=== PATIENT | female | born 1970 | race African-American/Black ===

== ENCOUNTER → 2020-01-29 | Outpatient (CLI) | payer OTHER ==
[~2020-01-29] MED LIST: CALCIUM 500 +1 EACH PO; DIOVAN320 MG PO; VITAMIN D PO
== END ==
LOC: NUC 07:31
PROVIDERS: ATTEND Nurse Practitioner
DX: M81.0 Age-related osteoporosis without current pathological fracture (principal); E55.9 Vitamin D deficiency, unspecified; K90.9 Intestinal malabsorption, unspecified; E21.3 Hyperparathyroidism, unspecified

== ENCOUNTER → 2020-01-31 | Outpatient (CLI) | payer OTHER ==
[2020-01-31 10:05] VITALS: BP 133/72
[2020-01-31 11:35] VITALS: BP 160/85
== END ==
LOC: OPONC 09:10
DX: D50.8 Other iron deficiency anemias (principal); K90.9 Intestinal malabsorption, unspecified; R10.9 Unspecified abdominal pain
CPT/HCPCS: 95000

== ENCOUNTER → 2020-02-07 | Outpatient (CLI) | payer OTHER ==
[2020-02-07 13:54] VITALS: BP 163/76
[2020-02-07 14:50] VITALS: BP 154/76
--- NOTE | 2020-02-07 14:56 | NUR ---
IN FOR 2ND INJECTAFER INFUSION. STATED HAD NO SIDE EFFECTS FROM HER 1ST INFUSION LAST MONDAY. TOLERATED INJECTAFER WITHOUT INCIDENT. OBSERVED FOR 30 MINUTES. POST BP GOOD. REMOVED IV AND DISMISSED IN GOOD CONDITION.
== END ==
LOC: OPONC 13:24 → CAT 14:15
DX: D50.8 Other iron deficiency anemias (principal); K90.9 Intestinal malabsorption, unspecified
CPT/HCPCS: 95000

== ENCOUNTER 2020-03-27 07:02 | Inpatient (IN) | payer OTHER ==
[2020-03-27] VITALS (17 sets, daily range): BP systolic 110–182; BP diastolic 72–88
[~2020-03-27] VITALS: Ht 170.2 cm; Wt 130.6 kg
--- NOTE | ~2020-03-27 | O ---
[facility] [place] [address] OPERATIVE REPORT Name: ROYCE KERR Room #: 441-P [facility] IN M.R.#: [id number] Admission: 03/27/20 Attend Phys: Victorina Paul DO Discharge: Date of : 74 Report #: [id number] THIS REPORT FOR: cc: Zeferino Valdes James A. DO Farris, Kari C. DO ~ CC: Zeferino Hilliard DATE OF SERVICE: 03/27/2020 PREOPERATIVE DIAGNOSES: 1. Uterine fibroids. 2. Enlarged uterus. 3. Pelvic pain. POSTOPERATIVE DIAGNOSES: 1. Uterine fibroids. 2. Enlarged uterus. 3. Pelvic pain. OPERATIVE PROCEDURE: Total abdominal hysterectomy with bilateral salpingo-oophorectomy. SURGEON: Dr. Victorina Paul. ANESTHESIA: General. INTRAVENOUS FLUIDS: 800 mL. URINE OUTPUT: 200 mL. ESTIMATED BLOOD LOSS: 250 mL. COMPLICATIONS: None. PATHOLOGY: Uterus with cervix, bilateral fallopian tubes and ovaries. DESCRIPTION OF PROCEDURE: The patient was taken to the operating room where general anesthesia was administered and found to be adequate. She was then prepped and draped in normal sterile fashion in dorsal supine position. A Pfannenstiel skin incision was made in the patient's abdomen approximately 2 cm above the symphysis pubis and carried through to the underlying layer of fascia. The fascia was nicked in the midline. The incision was extended laterally with Mason scissors. The superior aspect of the fascial incision was grasped with [facility] [address] [place] [address] OPERATIVE REPORT Name: USHAROYCE Room #: 441-P [facility] IN M.R.#: [id number] Admission: 03/27/20 Attend Phys: Victorina Paul DO Discharge: Date of : 74 Report #: [id number] Pina clamps, elevated and the underlying rectus muscle dissected off bluntly as well as with Mason scissors. Attention was turned to the inferior aspect of this incision, which in similar fashion was grasped with Pina clamps, elevated and the underlying rectus muscle dissected off bluntly and with Mason scissors. The rectus muscles were in the midline. The peritoneum was identified and entered bluntly. The peritoneal incision was then extended superiorly and inferiorly. The [place] retractor was then placed in the patient's abdomen. The patient was then placed in slight Trendelenburg position. The bowel was packed away cephalad with moist laparotomy sponges. The uterus was identified and then grasped with a Katrin tenaculum and brought through the hysterotomy incision. The bladder blade of the Ronnell was then placed in the patient's abdomen. The right fallopian tube and ovary were then grasped with a Kevin clamp and using the LigaSure device, the infundibulopelvic ligament was transected as well as the uteroovarian ligament and the fallopian tube. These structures were excised and sent for pathology. Attention was then turned to the patient's left pelvis where the fallopian tube and ovary were grasped on this side with a Kevin clamp and the same procedure was performed. Once the ovary and fallopian tube were excised, it was passed off for pathology. Attention was then turned back to the patient's uterus. The round ligaments were then transected using the LigaSure device bilaterally followed by the broad ligaments. The vesicouterine peritoneum was identified, tented upward and undermined with Metzenbaum scissors. The bladder flap was then created and dissected off the anterior aspect of the uterus and cervix bluntly with a moist Ray-Michael sponge. The cardinal ligaments and uterine arteries were then clamped and cauterized using the LigaSure device. Further blunt dissection of the bladder was performed. Once the cervix was well visualized, it was entered sharply using a scalpel. The anterior aspect of the vaginal mucosa was then grasped with a Pina clamp and using a curved Mason, the cervix was amputated from the apex of the vagina. The vaginal cuff was grasped at posterior aspect as well as both corners. The cervix and uterus were passed off for pathology. A 0 Vicryl was then used to reapproximate the anterior and posterior vaginal mucosa as well as anterior and posterior pelvic peritoneum in a running locked fashion. There was a small amount of bleeding noted at bilateral corners; therefore [id number] stitches were placed. The anterior aspect of the vaginal cuff was also noted to have a small amount of bleeding. Therefore, this was oversewn with 2-0 Vicryl. The pelvis was copiously irrigated. The irrigant was removed with suction and the vaginal cuff as well as bilateral pedicles were noted to be hemostatic. Shelbie was placed over the vaginal cuff. The [place] retractor was removed from the patient's abdomen and the laparotomy sponges were removed. The bowel was placed in its normal anatomical position. The muscle and peritoneum were then reapproximated using 2-0 Vicryl. The fascia was closed with 0 PDS in a running fashion. The subcutaneous tissue was irrigated. Bovie cautery was used to obtain excellent hemostasis. The subcutaneous tissue was then reapproximated using 3-0 plain and the skin was closed with subcuticular stitch using 4-0 Vicryl. The patient tolerated the procedure well. eduard Horne [facility] [address] [place] [address] OPERATIVE REPORT Name: KERRROYCE Room #: 441-P [facility] IN M.R.#: [id number] Admission: 03/27/20 Attend Phys: Victorina Paul DO Discharge: Date of : 74 Report #: [id number] and needle counts were reported as correct and the patient was taken to the recovery room in stable condition. By: [id number] Victorina Paul DO /nt
[~2020-03-27 07:02] MED LIST changes: +CYCLOBENZAPRINE10 MG PO; +FOSAMAX 70 MG T70 MG PO; +HEARTBURN RELIE20 MG PO
--- NOTE | 2020-03-27 09:07 | EKG ---
[facility] [place] [address] ELECTROCARDIOGRAM REPORT Name: ROYCE KERR Room #: [facility] [place]..#: [id number] Admission: 03/27/20 Attend Phys: Victorina Paul DO Discharge: Date of : 74 Report #: [id number] THIS REPORT FOR: cc: Zeferino Valdes James A. DO Lundgren, Craig H. MD [facility] ~ THIS REPORT FOR: //name// [facility] Test Date: 2020-03-27 Test Time: 07:27:01 Pat Name: ROYCE KERR Department: Room: Gender: F Erp Technical Lead: BREANNA : 1970 Requested By: Victorina Paul Order Number: [id number] MD: Tenzin Oneil Measurements Intervals [place] Rate: 74 P: 47 [place]: 160 QRS: 19 QRSD: 87 T: 20 QT: 395 QTc: 439 Interpretive Statements Sinus rhythm Abnormal R-wave progression, early transition No previous ECG available for comparison Electronically Signed On 03-27-2020 9:07:33 CDT by Tenzin Oneil [email or web address] <ELECTRONICALLY SIGNED> By: Tenzin Oneil MD, [facility] 03/27/20906 6 6 Tenzin Oneil MD, [facility] /EPI
[2020-03-27 09:21] LABS: HEMATOCRIT 38.8 % (37.0-47.0); HEMOGLOBIN 12.5 gm/dL (12.0-15.0)
--- NOTE | 2020-03-27 13:26 | NUR ---
PATIENT ARRIVED TO UNIT FROM PACU AT APPROX. 1230. ASSESSMENT CHARTED WITH ASSIST FROM SHERRELL HOLLY. PATIENT STATES PAIN AT 3/10 AND IS RESTING COMFORTABLY. PATIENT A&OX4 ABLE TO VOICE NEEDS. VSS, WILL CONTINUE TO MONITOR
--- NOTE | 2020-03-27 15:32 | NUR ---
Nutrition: pt admitted S/P Total hysterectomy, BSO this day. Received consult stating "post surgical". Diet advanced to clear liquids. Pt was sleeping soundly, did not disturb. No recent weight changes per chart. BMI 45, extreme class 3 obesity. No nutrition intervention planned at present. Will follow for timely diet advancement or any nutrition education desires. Low risk.
--- NOTE | 2020-03-28 03:43 | NUR ---
RECIEVED CARE OF THIS PATIENT AT 1900. PATIENT ALERT AND ORIENTED X4. HAS DRESSING ON LOWER ABD AT BIKINI LINE. DRESSING D/I. PATIENT DENIES PAIN. PATIENT HAS CAO WITH CLEAR LIGHT YELLOW URINE. IV IN LH PATENT WITH FLUIDS INFUSING. PATIENT HAS HEATING PAD TO ABD. SCD'S ON RAMONA. PATIENT ON BEDREST PER DOCTORS ORDERS. EDUCATED ON THE IMPORTANCE OF COUGHING AND DEEP BREATHING AND MOVING LEGS. SLEPT OFF AND ON DURING NIGHT.
[2020-03-28 04:45] VITALS: BP 132/67
[2020-03-28 05:58] LABS: HEMATOCRIT 35.4 % (37.0-47.0); HEMOGLOBIN 11.5 gm/dL (12.0-15.0); MCHC 32.3 g/dL (28.0-37.0); MCV 86.7 fL (80.0-100.0); RBC 4.09 mil/uL (4.20-5.00); RDW 22.9 % (10.5-14.5); WBC 11.8 thou/uL (4.0-11.0)
[2020-03-28 06:18] LABS: CALCIUM 8.2 mg/dL (8.5-10.1); CREATININE 0.7 mg/dL (0.6-1.0); POTASSIUM 3.9 mmol/L (3.5-5.1); TOTAL BILIRUBIN 0.4 mg/dL (0.2-1.0); TOTAL PROTEIN 6.3 g/dL (6.4-8.2)
[2020-03-28 08:43] VITALS: BP 136/86
--- NOTE | 2020-03-28 12:35 | NUR ---
Assumed pt care at 7am.Pt in bed resting without c/o.Assessment completed.vss. Regular diet ordered for breakfast.Pt up to bathroom with sba and walked back to chair byself for breakfast.Fair appetite noted.Pt ambulated in hallways with aerospace engineer assist.Good endurance noted.Pt will be going for another walk after lunch.No verbal c/o at present .Will continue to monitor.
[2020-03-28 16:12] VITALS: BP 145/98
[2020-03-28 20:00] VITALS: BP 127/78
[2020-03-29 03:29] VITALS: BP 116/71
--- NOTE | 2020-03-29 04:09 | NUR ---
RECIEVED CARE OF THIS PATIENT AT 1900. PATIENT ALET AND ORIENTED X4. UP TO BATHROOM WITH SBA. INCISION ON ABD AT BIKINI LINE IS WELL APPROXIMATED WITH OUT AND S/S OF INFECTION. NO DRAINAGE, REDNESS, TENDERNESS OR HEAT. PATIENT ONLY HAS PAIN WHEN GETTING UP. NO FLATUS YET BUT BELCHING A LOT. C/O H/A. BLOOD PRESSURE WAS RESTARTED TONIGHT. SLEPT MOST OF THS NIGHT.
[2020-03-29 08:42] VITALS: BP 139/87
[2020-03-29 12:03] VITALS: BP 139/87
== END 2020-03-29 14:14 | disposition home or self-care (01) | DRG 743 ==
LOC: OR → 4S 12:31 → OR 12:42 → 4S 03-29 14:14
PROVIDERS: Anesthesiology; ADMIT Obstetrics & Gynecology; ATTEND Obstetrics & Gynecology
PROC: 0UT70ZZ Resection of Bilateral Fallopian Tubes, Open Approach (ICD-10-PCS; principal; 2020-03-27)
PROC: 0UT90ZZ Resection of Uterus, Open Approach (ICD-10-PCS; principal; 2020-03-27)
PROC: 0UT20ZZ Resection of Bilateral Ovaries, Open Approach (ICD-10-PCS; principal; 2020-03-27)
DX: D25.9 Leiomyoma of uterus, unspecified (principal); N85.2 Hypertrophy of uterus; I10 Essential (primary) hypertension; K21.9 Gastro-esophageal reflux disease without esophagitis
CPT/HCPCS: 10102; 50010; 50093; 50101; 50386; 50455; 52287; 54118; 56524; 56525; 56526; 57092; 62110; 62900; 70005

== ENCOUNTER → 2020-04-13 | Outpatient (CLI) | payer OTHER ==
[2020-04-13 12:59] LABS: ABSOLUTE NEUTROPHILS 3.7 thou/uL (1.4-8.2); BASOPHILS 0.8 % (0.0-2.0); EOSINOPHILS 1.6 % (0.0-3.0); HEMATOCRIT 37.7 % (37.0-47.0); HEMOGLOBIN 12.7 gm/dL (12.0-15.0); LYMPHOCYTES 28.2 % (24.0-44.0); MCH 29.6 pg (26.0-34.0); MCHC 33.8 g/dL (28.0-37.0); MCV 87.5 fL (80.0-100.0); MONOCYTES 8.7 % (1.0-8.0); PLATELET COUNT 288 thou/uL (150-400); POLYS 60.7 % (36.0-66.0); RBC 4.31 mil/uL (4.20-5.00); RDW 19.6 % (10.5-14.5)
[2020-04-13 13:36] LABS: % SATURATION 15 % (20-39); IRON 59 ug/dL (50-170); TIBC 391 ug/dL (250-450)
[2020-04-13 14:09] LABS: ANISOCYTOSIS 2+; PLATELET ESTIMATE NORMAL
== END ==
LOC: LABMALL 12:03
PROVIDERS: ATTEND Nurse Practitioner
DX: E61.1 Iron deficiency (principal); E53.8 Deficiency of other specified B group vitamins; E55.9 Vitamin D deficiency, unspecified

== ENCOUNTER → 2020-05-27 | Outpatient (CLI) | payer OTHER ==
[2020-05-27 15:10] LABS: ABSOLUTE NEUTROPHILS 4.1 thou/uL (1.4-8.2); EOSINOPHILS 1.7 % (0.0-3.0); HEMATOCRIT 40.8 % (37.0-47.0); HEMOGLOBIN 13.1 gm/dL (12.0-15.0); LYMPHOCYTES 30.9 % (24.0-44.0); MCH 28.9 pg (26.0-34.0); MCHC 32.2 g/dL (28.0-37.0); MCV 89.7 fL (80.0-100.0); PLATELET COUNT 239 thou/uL (150-400); POLYS 58.4 % (36.0-66.0); RBC 4.54 mil/uL (4.20-5.00); RDW 13.4 % (10.5-14.5)
[2020-05-27 15:25] LABS: % SATURATION 12 % (20-39); IRON 53 ug/dL (50-170); TIBC 425 ug/dL (250-450)
== END ==
LOC: LABMALL 12:28
PROVIDERS: ATTEND Nurse Practitioner
DX: E55.9 Vitamin D deficiency, unspecified (principal); E53.8 Deficiency of other specified B group vitamins; E61.1 Iron deficiency

== ENCOUNTER 2020-06-05 14:00 | Emergency (ER) | payer OTHER ==
[~2020-06-05] VITALS: Ht 170.2 cm; Wt 128.8 kg
[2020-06-05 14:49] LABS: ABSOLUTE NEUTROPHILS 3.4 thou/uL (1.4-8.2); BASOPHILS 0.9 % (0.0-2.0); EOSINOPHILS 1.8 % (0.0-3.0); HEMATOCRIT 38.5 % (37.0-47.0); HEMOGLOBIN 12.5 gm/dL (12.0-15.0); LYMPHOCYTES 35.8 % (24.0-44.0); MCH 29.1 pg (26.0-34.0); MCHC 32.4 g/dL (28.0-37.0); MCV 89.9 fL (80.0-100.0); MONOCYTES 8.5 % (1.0-8.0); PLATELET COUNT 243 thou/uL (150-400); RBC 4.29 mil/uL (4.20-5.00); RDW 13.4 % (10.5-14.5); WBC 6.5 thou/uL (4.0-11.0)
[2020-06-05 14:57] LABS: ANION GAP 8 mmol/L (7-16); BUN 8 mg/dL (7-18); CALCIUM 9.7 mg/dL (8.5-10.1); CHLORIDE 108 mmol/L (98-107); CO2 23 mmol/L (21-32); CREATININE 0.6 mg/dL (0.6-1.0); GLUCOSE 90 mg/dL (74-106); POTASSIUM 4.3 mmol/L (3.5-5.1); SODIUM 139 mmol/L (136-145)
[2020-06-05 15:07] LABS: ALBUMIN 3.7 g/dL (3.4-5.0); DIRECT BILIRUBIN < 0.1 mg/dL (<0.1-0.2); SGOT 43 U/L (15-37); SGPT 36 U/L (30-65); TOTAL BILIRUBIN 0.4 mg/dL (0.2-1.0); TOTAL PROTEIN 7.4 g/dL (6.4-8.2); TROPONIN-I <0.06 ng/mL (<0.06)
[2020-06-05] MEDS ORDERED: MECLIZINE HCL25 MG PO (15:45)
[2020-06-05] MEDS ORDERED: ZOFRAN ODT4 MG PO (15:45)
[2020-06-05 15:57] VITALS: BP 141/77
--- NOTE | 2020-06-05 16:56 | EKG ---
[facility] [place] [address] ELECTROCARDIOGRAM REPORT Name: ROYCE KERR Room #: DEP [facility]#: [id number] Admission: 06/05/20 Attend Phys: Discharge: 06/05/20 Date of : 74 Report #: [id number] THIS REPORT FOR: cc: Zeferino Valdes James A. DO Santiago, Patrick MD [facility]GED WITH [facility] THIS REPORT FOR: //name// [facility] ED Test Date: 2020-06-05 Test Time: 15:09:07 Pat Name: ROYCE KERR Department: Room: Gender: F Energy Engineer: esheets : 1970 Requested By: Jessica Linda Order Number: [id number] MD: Link Mccauley Measurements Intervals [place] Rate: 57 P: 24 [place]: 154 QRS: 3 QRSD: 104 T: 2 QT: 404 QTc: 394 Interpretive Statements Sinus rhythm Baseline wander in lead(s) II,III,aVF Compared to ECG 03/27/2020 07:27:01 No significant changes Electronically Signed On 06-05-2020 16:56:18 CDT by Link Mccauley [email or web address] <ELECTRONICALLY SIGNED> By: Link Mccauley MD, FACC 06/05/20 1656 [id number] Link Mccauley MD, [facility] /EPI
== END 2020-06-05 15:57 | disposition home or self-care (01) ==
LOC: ER 14:00
PROVIDERS: Emergency Medicine
DX: R42 Dizziness and giddiness (principal); R11.2 Nausea with vomiting, unspecified; I10 Essential (primary) hypertension; R51.9 Headache, unspecified; R25.2 Cramp and spasm; K21.9 Gastro-esophageal reflux disease without esophagitis; M81.0 Age-related osteoporosis without current pathological fracture; Z90.89 Acquired absence of other organs; Z98.51 Tubal ligation status; Z98.890 Other specified postprocedural states; Z79.899 Other long term (current) drug therapy

== ENCOUNTER → 2020-07-08 | Outpatient (CLI) | payer OTHER ==
[~2020-07-08] MED LIST changes: +MECLIZINE HCL25 MG PO; +ZOFRAN ODT4 MG PO
== END ==
LOC: LAB 10:59
PROVIDERS: ATTEND Nurse Practitioner
DX: U07.1 COVID-19 (principal)

== ENCOUNTER → 2020-08-07 | Outpatient (CLI) | payer OTHER | LOC: RAD 16:06 | PROVIDERS: ATTEND Nurse Practitioner | DX: R22.31 Localized swelling, mass and lump, right upper limb (principal) ==

== ENCOUNTER → 2020-09-24 | Outpatient (CLI) | payer OTHER | LOC: RAD 07:12 | PROVIDERS: ATTEND Nurse Practitioner | DX: M17.11 Unilateral primary osteoarthritis, right knee (principal); M25.78 Osteophyte, vertebrae; M25.571 Pain in right ankle and joints of right foot ==

== ENCOUNTER → 2020-10-09 | Outpatient (CLI) | payer OTHER | LOC: CAT 14:04 | PROVIDERS: ATTEND Nurse Practitioner | DX: N20.0 Calculus of kidney (principal) ==

== ENCOUNTER → 2020-10-28 | Outpatient (CLI) | payer OTHER | LOC: RAD 15:15 | PROVIDERS: ATTEND Nurse Practitioner | DX: M25.552 Pain in left hip (principal); M54.9 Dorsalgia, unspecified ==

== ENCOUNTER → 2020-12-17 | Outpatient (CLI) | payer OTHER ==
[2020-12-17 08:54] LABS: ABSOLUTE NEUTROPHILS 3.5 thou/uL (1.4-8.2); BASOPHILS 0.6 % (0.0-2.0); EOSINOPHILS 5.1 % (0.0-3.0); HEMATOCRIT 39.6 % (37.0-47.0); HEMOGLOBIN 12.9 gm/dL (12.0-15.0); LYMPHOCYTES 28.4 % (24.0-44.0); MCH 28.7 pg (26.0-34.0); MCHC 32.5 g/dL (28.0-37.0); MCV 88.5 fL (80.0-100.0); MONOCYTES 7.6 % (1.0-8.0); PLATELET COUNT 230 thou/uL (150-400); POLYS 58.3 % (36.0-66.0); RBC 4.48 mil/uL (4.20-5.00); RDW 13.7 % (10.5-14.5)
[2020-12-17 09:13] LABS: % SATURATION 29 % (20-39); IRON 115 ug/dL (50-170); TIBC 397 ug/dL (250-450)
[2020-12-17 09:20] LABS: ALBUMIN 3.6 g/dL (3.4-5.0); ANION GAP 9 mmol/L (7-16); BUN 8 mg/dL (7-18); CALCIUM 10.1 mg/dL (8.5-10.1); CHLORIDE 109 mmol/L (98-107); CO2 26 mmol/L (21-32); CREATININE 0.9 mg/dL (0.6-1.0); GLUCOSE 85 mg/dL (74-106); POTASSIUM 4.1 mmol/L (3.5-5.1); SGOT 23 U/L (15-37); SGPT 36 U/L (14-59); SODIUM 144 mmol/L (136-145); TOTAL BILIRUBIN 0.4 mg/dL (0.2-1.0); TOTAL PROTEIN 7.4 g/dL (6.4-8.2)
[2020-12-17 09:34] LABS: CHOLESTEROL 165 mg/dL (<200); HDL CHOLESTEROL 72 mg/dL (>40); LDL CHOLESTEROL 78 mg/dL (<100); TC:HDL 2.3 Ratio (Not establshd); TRIGLYCERIDE 75 mg/dL (<150); VLDL 15 mg/dL (<40)
== END ==
LOC: LAB 07:53
PROVIDERS: ATTEND Nurse Practitioner
DX: Z00.00 Encounter for general adult medical examination without abnormal findings (principal); D64.9 Anemia, unspecified; E55.9 Vitamin D deficiency, unspecified

== ENCOUNTER → 2020-12-29 | Outpatient (CLI) | payer OTHER | LOC: RAD 08:43 | PROVIDERS: ATTEND Nurse Practitioner | DX: Z12.31 Encounter for screening mammogram for malignant neoplasm of breast (principal) ==